=== PATIENT | female | born 1945 ===

== ENCOUNTER 2017-01-20 12:08 | Emergency (ER) | payer BC ==
[2017-01-20 12:19] VITALS: BP 119/67
[2017-01-20] MEDS ORDERED: Tetan/Diph/Pertus SYR(Tdap)* 0.5 ML SYR(BOOSTRIX) use SYR IM ONE (12:39)
--- NOTE | 2017-01-20 12:47 | UC ---
Bite Injury/Animal HPI - HPI Summary HPI Summary: cat bite x 6 hrs ago was bitten by her own cat as she was putting the can in a box bite the right index finger, + pain, mild swelling , no discharge , no erythema - History of Current Complaint Chief Complaint: UCBiteInjury Stated Complaint: SKIN COMPLAINT,CAT BITE Time Seen by Provider: 01/20/17 12:11 Hx Obtained From: Patient Severity Currently: Mild Severity Initially: Mild Onset/Duration: Sudden Onset, Lasting Hours - 6, Still Present Type of Bite: Pet - cat Has Animal Been Immunized?: Yes Character: Puncture - right index finger Aggravating Factor(s): Nothing Alleviating Factor(s): Nothing Associated Signs And Symptoms: Negative: Fever, Erythema, Drainage, Swelling, Lymphadenopathy, Numbness/Tingling, Limited ROM Animal Available for Observation: No - Allergies/Home Medications Allergies/Adverse Reactions: Allergies Allergy/AdvReac Type Severity Reaction Status Date / Time No Known Allergies Allergy Verified 01/20/17 12:19 PMH/Surg Hx/FS Hx/Imm Hx Previously Healthy: Yes - Surgical History Surgical History: Yes Surgery Procedure, Year, and Place: D&C 1996 - Family History Known Family History: Negative: Diabetes - Social History Alcohol Use: Occasionally Substance Use Type: None Smoking Status (MU): Never Smoked Tobacco - Immunization History Most Recent Tetanus Shot: 2003 Review of Systems Constitutional: Negative Eyes: Negative ENT: Negative Respiratory: Negative Cardiovascular: Negative Is Patient Immunocompromised?: No All Other Systems Reviewed And Are Negative: Yes Physical Exam Triage Information Reviewed: Yes Appearance: Well-Appearing, No Pain Distress, Well-Nourished Vital Signs: Initial Vital Signs Temp 96.8 F 01/20/17 12:15 Pulse 80 01/20/17 12:15 Resp 14 01/20/17 12:15 BP 119/67 01/20/17 12:15 Vital Signs Reviewed: Yes Eyes: Positive: Conjunctiva Clear ENT: Positive: Normal ENT inspection, Hearing grossly normal, Pharynx normal Neck: Positive: Supple, Nontender, No Lymphadenopathy Respiratory: Positive: Chest non-tender, Lungs clear, Normal breath sounds Cardiovascular: Positive: RRR, No Murmur, Pulses Normal Skin: Positive: Other - right index finger , small puncutre wound for the cat bite, minimal swelling, no erythema, no tenderness , good ROM of the finger / hand Bite Injury Course/Dx - Differential Dx/Diagnosis Provider Diagnoses: cat bite right hand Discharge - Discharge Plan Condition: Stable Disposition: HOME Prescriptions: Amoxicillin/Clavulanate TAB* [Augmentin TAB 875*] 875 mg PO BID #20 tab Patient Education Materials: Animal Bite (ED) Additional Instructions: follow up in 5 days for wound check sooner if increase pain, swelling, redness, discharge, fever
== END 2017-01-20 12:49 | disposition home or self-care (01) ==
LOC: UCCORT 12:08
DX: S61.250A Open bite of right index finger without damage to nail, initial encounter (principal); W55.01XA Bitten by cat, initial encounter; Y93.89 Activity, other specified; Y92.9 Unspecified place or not applicable; Y99.9 Unspecified external cause status; Z23 Encounter for immunization
CPT/HCPCS: 90471; 90715; 99202; G0463